=== PATIENT | male | born 1975 | race Caucasian/White ===

== ENCOUNTER 2017-03-29 23:08 | Emergency (ER) | payer SELFPAY ==
[~2017-03-29] VITALS: Ht 182.9 cm; Wt 81.6 kg
[~2017-03-29 23:08] MED LIST: CLIN300C3 PO; CYCL10TA9 PO; HYDR1TAB PO; LISI40TA PO; MRTZ30T1 PO; NAPR-243 PO; SULF1TAB7 PO
--- OUTSIDE RECORDS SUMMARY | 2017-03-29 23:13 | XMS REPORT ---
Author Author TANA VALLES Organization [facility] Address [address] [place] [address] Care Team Providers Care Business Division Chair Name Role Phone MAGGIE VALLESIE Unavailable PROBLEMS Type Condition ICD9-CM Code LFA34-EU Code Onset Dates Condition Status SNOMED Code Problem Polysubstance abuse F19.10 Active 212243735 Problem Essential hypertension, benign 401.1 Active 2889263 ALLERGIES No Known Allergies SOCIAL HISTORY Never Assessed PLAN OF CARE Activity Details Follow Up est care Reason: VITAL SIGNS Weight 178.6 lbs 2016-06-09 Temperature 98.1 degrees Fahrenheit 2016-06-09 Heart Rate 80 bpm 2016-06-09 Respiratory Rate 18 2016-06-09 Blood pressure systolic 132 mmHg 2016-06-09 Blood pressure diastolic 80 mmHg 2016-06-09 MEDICATIONS Medication Instructions Dosage Frequency Start Date End Date Duration Status Lisinopril 10 mg take 3 tablet by Oral route 1 time per day Apr, Active RESULTS Name Result Date Reference Range INR (IN HOUSE) 2016-06-09 INR 0.9 1.10 - 3.30 PREVIOUS INR none availalbe CURRENT COUMADIN DOSE NEW COUMADIN DOSE Lot # [id number] Exp date Feb 2017 URINE DRUG SCREEN (IN HOUSE) 2016-06-09 Lot # [id number] Exp date Control + COCAINE Negative AMPH Negative MTD Negative THC Positive OPIATE Negative BENZO Negative PCP Negative BAR Negative OXY Negative MAMP Negative TCA Negative BUP Negative MDMA Negative UA LONG DIP (IN HOUSE) 2016-06-09 Lot # [id number] Exp date 04/2017 Clarity clear Color yellow Odor no GLU Neg DAVID Neg KET Neg SG 1.010 BLO Neg pH 7.0 Protein Neg URO 0.2 NIT Neg FARIBA Neg Lot # Exp date CMP 2016-06-09 Glucose, Serum 91 65-99 BUN 10 6-24 Creatinine, Serum 0.96 0.76-1.27 eGFR If NonAfricn Am 97 >59 eGFR If Africn Am 112 >59 BUN/Creatinine Ratio 10 9-20 Sodium, Serum 139 134-144 Potassium, Serum 5.0 3.5-5.2 Chloride, Serum 98 96-106 Carbon Dioxide, Total 25 18-29 Calcium, Serum 9.5 8.7-10.2 Protein, Total, Serum 7.5 6.0-8.5 Albumin, Serum 4.5 3.5-5.5 Globulin, Total 3.0 1.5-4.5 A/G Ratio 1.5 1.1-2.5 Bilirubin, Total 0.4 0.0-1.2 Alkaline Phosphatase, S 55 39-117 AST (SGOT) 17 0-40 ALT (SGPT) 12 0-44 CBC w/ MANUAL DIFF 2016-06-09 WBC 9.6 3.4-10.8 RBC 5.23 4.14-5.80 Hemoglobin 16.4 12.6-17.7 Hematocrit 47.0 37.5-51.0 MCV 90 79-97 MCH 31.4 26.6-33.0 MCHC 34.9 31.5-35.7 RDW 13.4 12.3-15.4 Platelets 360 150-379 Neutrophils 57 Lymphs 34 Monocytes 5 Eos 4 Basos 0 Neutrophils Absolute 5.5 1.4-7.0 Lymphs (Absolute) 3.3 0.7-3.1 Monocytes(Absolute) 0.5 0.1-0.9 Eos (Absolute Value) 0.4 0.0-0.4 Baso(Absolute) 0.0 0.0-0.2 Differential Comment Note: RBC Comment Note: Normal Platelet Comment Note: Adequate HEP C AB W/REFLEX ([facility] ONLY) PROCEDURES Procedure Date Ordered Result Body Site URINALYSIS, AUTO, W/O SCOPE Jun 09, 2016 COMPREHEN METABOLIC PANEL Jun 09, 2016 VENIPUNCT, ROUTINE* Jun 09, 2016 HEP C AB W/REFLEX ([facility] ONLY) Jun 09, 2016 MANUAL CELL COUNT, EACH Jun 09, 2016 PROTHROMBIN TIME Jun 09, 2016 DRUG TEST PRSMV DIR OPT OBS Jun 09, 2016 IMMUNIZATIONS No Known Immunizations MEDICAL (GENERAL) HISTORY Type Description Date Medical History hepatitis C Surgical History appendix Hospitalization History blood poisoning
--- OUTSIDE RECORDS SUMMARY | 2017-03-29 23:13 | XMS REPORT ---
Author NATAN Carty [facility] Address [address] [place] [address] Care Team Providers Care Welcome Wagon Hostess Name Role Phone NATAN SALEH Unavailable PROBLEMS Type Condition ICD9-CM Code XWM50-XU Code Onset Dates Condition Status SNOMED Code Problem Polysubstance abuse F19.10 Active 716110065 Problem Essential hypertension, benign 401.1 Active 6132248 ALLERGIES No Information SOCIAL HISTORY Never Assessed PLAN OF CARE VITAL SIGNS MEDICATIONS Unknown Medications RESULTS No Results PROCEDURES No Known procedures IMMUNIZATIONS No Known Immunizations MEDICAL (GENERAL) HISTORY Type Description Date Medical History hepatitis C Surgical History appendix Hospitalization History blood poisoning
--- OUTSIDE RECORDS SUMMARY | 2017-03-29 23:14 | XMS REPORT | Continuity of Care Document ---
Author Author [facility] Address Unknown Phone Unavailable Allergies Medications Problems Date Dx Coded Attending Type Code Diagnosis Diagnosed By 05/06/2008 DEBRA HAUSER APRN 558.9 GASTROENTERITIS NONINFECTIOUS 05/06/2008 DEBRA HAUSER APRN 786.2 COUGH 05/09/2008 DEBRA HAUSER APRN 465.9 UPPER RESPIRATORY INFECTION 12/31/2008 DEBRA HAUSER APRN 724.5 BACKACHE UNSPECIFIED 05/08/2013 DEBRA HAUSER APRN 401.1 HYPERTENSION, BENIGN ESSENTIAL Procedures Code [place] [address] ROUTINE VENIPUNCTURE 05/08/2013 42833 CMP 05/08/2013 78545 TSH 05/08/2013 35033 CBC 05/08/2013 Results Encounters ACCT No. Visit Date/Time Discharge Status Pt. Type Provider Facility Loc./Unit Complaint [id number] 05/08/2013 15:57:00 05/08/2013 23: 59:59 CLS Outpatient DEBRA HAUSER APRN [id number] 02/17/2014 03:11:00 2013 03:38:00 DIS Emergency [id number] 12/17/2013 10:28:00 2013 15:35:00 DIS Emergency
[2017-03-29] MEDS ORDERED: FLUORESCEIN (FLUOR-I-STRIPS) 1 MG STRP OU ONE (23:30)
[2017-03-29] MEDS ORDERED: TETRACAINE 0.5% OPHTH SOLN 4 ML BTL (SINGLE DOSE ONLY) OU ONE (23:30)
--- NOTE | 2017-03-29 23:36 | ED EENT ---
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 HE THINKS HE LOST CONSCIOUSNESS HE WOKE UP ON THE GROUND WITH A HAMMER STILL IN HIS HANDS. WHEN HE WOKE HE HAD AN INTENSE PAIN IN HIS LEFT EYE. NO OTHER SYMPTOMS. HE CANNOT OPEN HIS EYE AND IS VERY SENSITIVE TO LIGHT. 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 The pain is not been relieved with 4 tablets of ibuprofen. It is very severe. He feels like spasming. His significant other briefly examined the eye and said there is no bleeding but decided to come here because his pain was not improving. No prior history of injury to the eye. He says when he got hit and knocked him out and after that his significant other says he was acting confused. Patient says he feels like his eyes were crossed in a spasm and he can't move them without significant amount of pain in his eye. He is having no pain in the back of his head or anywhere else. He rates it 8 out of 10 on arrival. He says he's had metal shavings in his eye before and this is way worse. Allergies and Home Medications Allergies Coded Allergies: No Known Drug Allergies (Unverified , 12/25/10) Home Medications Clindamycin Hcl 300 Mg Capsule, 1 EACH PO QID, #40 Prescribed by: KERMIT MCKEON on 12/17/13 1507 Mirtazapine 30 Mg Tab, 1 EACH PO HS, (Reported) Naproxen 500 Mg Tablet, 1 EACH PO TID PRN for PAIN, #20 FOR PAIN Prescribed by: KERMIT MCKEON on 12/17/13 1507 Trimethoprim/Sulfamethoxazole 1 Ea Tablet, 1 EA PO BID, #10 Prescribed by: LISSA GOODE on 02/17/14 0330 Review of Systems Constitutional: No chills, No fever Eyes: Blurred Vision, Pain, Photophobia Ears: Denies Dizziness, Denies Pain Nose: denies clots, denies congestion Mouth: denies clots, denies loose teeth Respiratory: No short of breath, No wheezing Past Ywussct-Gqnwcp-Nzslgm Hx Patient Social History Recent Foreign Travel: No Contact w/Someone Who Travel: No Recent Infectious Disease Expo: No Immunizations Up To Date Tetanus Booster (TDap): More than 5yrs Surgeries Surgeries: Appendectomy Reproductive System Hx Reproductive Disorders: No Sexually Transmitted Disease: No Physical Exam Vital Signs Vital Sign - Last 12Hours 03/29/17 23:16 Temp 98.0 Pulse 92 Resp 24 B/P (MAP) 145/104 (118) Pulse Ox 97 General Appearance: WD/WN, moderate distress Eyes: bilateral eye other (no swelling, ecchymosis, erythema in the preseptal soft tissues. He does not have much movement of his lateral rectus or inferior rectus muscles. Negative for proptosis.) Ears: bilateral ear auricle normal, bilateral ear canal normal Nose: normal inspection, No active bleeding Mouth/Throat: normal mouth inspection, pharynx normal Neck: non-tender, supple, normal inspection Cardiovascular: normal peripheral pulses, regular rate, rhythm Respiratory: chest non-tender, lungs clear, normal breath sounds Neurologic/Psychiatric: alert, normal mood/affect, oriented x 3 Skin: normal color, warm/dry Progress/Results/Core Measures Results/Orders My Orders Orders - BHARAT PATTERSON Tetracaine 0.5% Ophth [place] Sdv (Tetracai (03/29/17 23:30) Fluorescein Strips (Kpnnh-T-Ggwpmy) (03/29/17 23:30) Fentanyl Injection (Sublimaze Injection (03/30/17 00:00) Saline Lock/Iv-Start (03/29/17 23:48) Ct Orbit Wo (03/30/17 00:05) Ns Iv 1000 Ml (Sodium Chloride 0.9%) (03/30/17 00:59) Fentanyl Injection (Sublimaze Injection (03/30/17 01:00) Hydromorphone Injection (Dilaudid Inject (03/30/17 01:49) Hydromorphone Injection (Dilaudid Inject (03/30/17 02:00) Continuous Ekg Monitoring (03/30/17 01:55) Fluorescein Strips (Ypaxz-P-Gytgop) (03/30/17 02:32) Ketorolac Injection (Toradol Injection) (03/30/17 02:45) Levofloxacin 500 Mg/100 Ml Iv (Levaquin (03/30/17 03:15) Nicotine Patch (Nicoderm Patch) (03/30/17 03:45) Hydromorphone Injection (Dilaudid Inject (03/30/17 04:15) Medications Given in ED Current Medications Medications Dose Ordered Sig/Lorraine Route Start Time Stop Time Status Last Admin Dose Admin Fentanyl Citrate 50 mcg ONCE ONCE IVP 03/30/17 00:00 03/30/17 00:01 DC 03/30/17 00:25 50 MCG Fentanyl Citrate 100 mcg ONCE ONCE IVP 03/30/17 01:00 03/30/17 01:01 DC 03/30/17 01:02 100 MCG Fluorescein Sodium 1 mg ONCE ONCE OU 03/29/17 23:30 03/29/17 23:32 DC 03/29/17 23:47 1 MG Fluorescein Sodium 1 mg STK-MED ONCE .ROUTE 03/30/17 02:32 03/30/17 02:34 DC 03/30/17 02:33 1 MG Hydromorphone HCl 1 mg ONCE ONCE IVP 03/30/17 02:00 03/30/17 02:02 DC 03/30/17 01:52 1 MG Ketorolac Tromethamine 30 mg ONCE ONCE IVP 03/30/17 02:45 03/30/17 02:47 DC 03/30/17 02:53 30 MG Levofloxacin/ Dextrose 100 ml @ 100 mls/hr ONCE ONCE IV 03/30/17 03:15 03/30/17 04:14 03/30/17 03:20 100 MLS/HR Sodium Chloride 1,000 ml @ 0 mls/hr Q0M ONCE IV 03/30/17 00:59 03/30/17 01:01 DC 03/30/17 00:20 0 MLS/HR Tetracaine HCl 4 ml ONCE ONCE OU 03/29/17 23:30 03/29/17 23:32 DC 03/29/17 23:47 4 ML Vital Signs/I&O Vital Sign - Last 12Hours 03/29/17 23:16 Temp 98.0 Pulse 92 Resp 24 B/P (MAP) 145/104 (118) Pulse Ox 97 Blood Pressure Mean: 118 Progress Note #1: Time: 23:47 Progress Note Applied multiple drops of tetracaine with only very marginal improvement in his pain. He still rating at 8 out of 10. I'm worried about a deeper global injury versus a retrobulbar injury. I'm unable to examine his entire eye under fluorescein stain. We will get a CT scan of his head to focused on the eyes. Progress Note #2: Time: 02:04 Progress Note After 150 g of fentanyl and 1 mg of Dilaudid the patient says his pain is starting to get the edge knocked off. I do some more tetracaine eyedrops with no improvement in his pain. He is able to move his pupil down to the midline but not beyond that due to extreme pain. I have examined his eye with his eyelid closed as well as his eyelid opened. I'm not able to examine his iris or pupil as well as open the eyelid his eyes held and spasm in a superior manner. He cannot force his eye to look down and is experiencing a lot of pain every time he tries. We are concerned about a inferior rectus muscle laceration. At this speak with radiology a stat read and see if there is any evidence of a metallic foreign body. If there is not he will need an MRI of his eyes and I will discuss this with ophthalmology in [place] whether or not he could stay here with Pain Management and get the MRI in the morning or he needs to transit to [facility] for an MRI and Ophthalmology Consult. Stat read Dr. Pedro Toth: Discussed the imaging at length. There is no foreign body seen certainly no metallic object seen. Scan is sufficient and intact contrast and will not add unless you're looking for inflammatory pathology. He says it would be safe to do an MRI however he does not see anything. He says there may be some hemorrhage versus artifact seen in the anterior chamber but he sees the same shadow on the right eye as well so he favors it to be more likely artifact. To evaluate for an laceration of the inferior rectus muscle would need an MRI. Progress Note #3: Time: 02:35 Progress Note After administration of Dilaudid some time ago he is now able to bring his eye down so I can examine it and there is a very faint 1 mm linear corneal abrasion over the medial portion of the left iris. No foreign body is seen. There is minimal tearing. To command the patient is able to bring his eye down and externally. When his right eye looks down his left eye also looks down consensually. There is no disconjugate gaze. He is not going to hold still long enough for me to get a slit lamp examination. Progress Note #4: Time: 03:58 Progress Note Patient is now requesting to leave AMA as he does not want to go to cancel it if he cannot have a guaranteed ride home. He is afraid of being stranded [facility]. He does not have anyone that can take him up there and back reliably. We can definitely get him there by ambulance however because of the timing [facility] will not transport until 8 AM. I have offered him every explanation I can and he is adamant that he will not go if he cannot have a guaranteed ride home. If he does choose to go AMA I have offered him Plan B which would be to follow up at 8 AM with the local digester operator's at [facility] to have his eye examined for possibility of foreign body with dilated slit lamp examination. We have already made contact with the optometrists and they are aware of his existence and he would need merely to show up. If there is no evidence of foreign body and he would not need to go to [place]. If he does decide he will take ambulance transportation to [facility] then we will have to find another option other than [facility] to get him transported in a reasonable amount of time. Earlier transport attempts by air were denied due to weather for other patients today so it's unlikely will be able to fly him. I've given him until his antibiotics are done to discuss this with his significant other and chooses a path. He is decided he wants to leave go home get some rest and then follow up with the digester operator at 8. Diagnostic Imaging Diagonstic Imaging: CT Plain Films/CT/US/NM/MRI: head (face focusing on the ice) Comments Stat read impression: 1. Intact or wrist. No post septal edema or retrobulbar hematoma. 2. Paranasal sinus mucosal thickening. Reviewed: Reviewed by Me Consults Consults #1: Consults Notes Dr. black, digester operator discussed the case imaging and findings. She feels the same way that if he's having this much pain that relieved by topical tetracaine that she would recommend referral to ophthalmology and possible transfer care. His lack of mobility of extraocular muscles is what really concerns her. She suggests [place]. If he stays around here they would be happy to see him first thing in the morning to help follow-up. Dr. Jb Love, ophthalmology at [facility]: 0 145: Discussed case lab imaging and findings and he says it is histrionics versus actual foreign body of the eye or laceration of inferior rectus possible. He recommends that we try her best to rule out histrionics and then we discussed with the radiologist if there is or is not any metallic object in the eye. If there is not then he recommends an MRI within slices through the eye. He also wants his discussed with radiologist without scan was sufficient to that area and there is any other foreign body seen at all in the inferior orbit. He also wants us to discuss whether or not there is any evidence of laceration of an muscles on CT. If we have laceration of the extraocular muscles this will need to go somewhere to a team probably [facility]s [facility] where they actually do the surgery. He is willing to consult on the case with [facility] may be a better place for the patient to go as he does not do this type of surgery and does not have an eye trauma team. Final he recommends that they have both eyes open and have the patient look down the right eye looks down but the left eye remains up then you have your diagnosis and he needs to go directly to an eye trauma surgeon. However if the left eye looks down in the right eye follows it then this cast doubt on there being any injury to the inferior rectus. We discussed the conversation with the radiologist. Consults #2: Consults Notes [facility]: 0220; spoke with Andrés, triage nurse. He is given a run this through the trauma physician educational adviser to see if they want to go straight to ophthalmology or through them first. 0255: Dr Prado: Discussed case imaging and findings of Exam. VA is 20/200 in left eye. He would like to see the pt in ER to ER transfer. He is concerned only about a foreign body to the eye. [place] does not have a retina specialist. He is not certain the patient would need to be admitted unless there is evidence of foreign body on examination. He would like us to put a eye shield and give a dose of Levaquin. Departure Impression Impression: Primary Impression: Corneal abrasion Qualified Codes: S05.02XA - Injury of conjunctiva and corneal abrasion without foreign body, left eye, initial encounter Disposition: Condition: Stable Departure-Patient Inst. Decision time for Depature: 04:11 Referrals: NO,LOCAL PHYSICIAN (PCP/Family) Primary Care Physician Add. Discharge Instructions: My advice would be the to go to the ER in [facility] and be examined by ophthalmology. If you're not going to do that and the secondary option would be to go to see the digester operator at [facility] at 8 AM for dilated slit lamp examination looking for retained foreign body of the eye left side. Please call their clinic at [phone] at [phone]. I spoke with Dr. Black this morning. If you're having pain you may take 1-2 tablets of the oxycodone every 6 hours as needed. I'll send a prescription for you to fill the pharmacy for pain medicine as well. Be aware that failing to follow-up with your eye in a timely, appropriate manner may cost you the vision in that eye. All discharge instructions reviewed with patient and/or family. Voiced understanding. Scripts Oxycodone HCl/Acetaminophen (Oxycodone-Acetaminophen 10-325) 1 Each Tablet 1-2 EACH PO Q6H Y for BREAKTHROUGH PAIN, #30 TAB 0 Refills Prov: BHARAT PATTERSON 03/30/17 Work/School Note: Work Release Form Date Seen in the Emergency Department: Mar 30, 2017 Return to Work: Apr 01, 2017 Restrictions: No Restrictions Copy Copies To 1: NATAN SALEH DO Copies To 2: YING COPE OD BHARAT PATTERSON Mar 29, 2017 23:36
[2017-03-30] MEDS ORDERED: NS IV 1000 ML 1,000 ML IV ONE (00:59)
[2017-03-30] MEDS ORDERED: fentaNYL INJECTION 100 MCG/2 ML AMP IVP ONE ×2 (01:00)
[2017-03-30] MEDS ORDERED: HYDROmorphone (DILAUDID) 2 MG/ML VIAL ONE (01:49)
[2017-03-30] MEDS ORDERED: HYDROmorphone (DILAUDID) 2 MG/ML VIAL IVP ONE ×2 (02:00→04:15)
[2017-03-30] MEDS ORDERED: FLUORESCEIN (FLUOR-I-STRIPS) 1 MG STRP ONE (02:32)
[2017-03-30] MEDS ORDERED: KETOROLAC 30 MG/ML VIAL IVP ONE (02:45)
[2017-03-30] MEDS ORDERED: LEVOFLOXACIN 500 MG/100 ML IV 100 ML IV ONE (03:15)
[2017-03-30] MEDS ORDERED: NICOTINE 21 MG (NICODERM) PATCH TD ONE (03:45)
[2017-03-30] MEDS ORDERED: RX-OXYCODONE/APAP 5-325 MG #4 TAB PK PO PRN (04:15)
[2017-03-30] MEDS ORDERED: OXYC-465 PO (04:15)
[2017-03-30 04:29] VITALS: BP 145/104
--- NOTE | 2017-03-30 07:20 | Diagnostic Imaging Report ---
PROCEDURE: CT orbit without. TECHNIQUE: Multiple contiguous axial images were obtained through the facial bones without the use of intravenous contrast. INDICATION: Patient saw flashes of white light while working. Syncope. Woke up on the ground. Left eye pain. Photophobia. FINDINGS: Orbital contents are symmetrical and appear normal. No evidence of post-septal edema or hematoma. The optic nerves and extraocular muscles are normal. The globes are symmetrical and normal. There is noted diffuse edema throughout the ethmoid sinuses and extending into the frontal sinuses. No fracture demonstrated. IMPRESSION: 1. Finding consistent with inflammatory paranasal sinus disease. 2. Orbits appear normal. These findings are concordant with the preliminary report. Dictated by: Dictated on workstation # [id number]
== END 2017-03-30 04:30 | disposition left against medical advice (07) ==
LOC: EDUNIT# 23:08 → ER 23:10
DX: S05.02XA Injury of conjunctiva and corneal abrasion without foreign body, left eye, initial encounter (principal); W20.8XXA Other cause of strike by thrown, projected or falling object, initial encounter
CPT/HCPCS: 70480

== ENCOUNTER → 2020-01-08 | Outpatient (CLI) | payer SELFPAY ==
[~2020-01-08] MED LIST changes: +OXYC-556 PO
--- NOTE | 2020-01-08 10:37 | Diagnostic Imaging Report ---
CLINICAL INDICATION: Patient with low back pain. 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 EXAM: MRI of the lumbar spine performed without IV contrast. Sagittal T2, sagittal T1, sagittal stir, axial T1, and axial T2. COMPARISON: None. FINDINGS: There is no acute lumbar spine fracture or dislocation. There is chronic small Schmorl's nodes involving the inferior endplate of the L2 vertebra and upper and lower endplates of the L3, L4, and L5 vertebra. There is no marrow edema seen. There is a small intraosseous hemangioma within the L5 vertebra. The visualized portions of the distal thoracic spinal cord, conus medullaris, and cauda equina nerve roots are unremarkable. The conus medullaris tip is seen at the L1-L2 intervertebral level. There is no significant paraspinal soft tissue abnormality. L1-L2: Unremarkable. L2-L3: There is mild bilateral facet arthropathy. There is minimal disc bulging anteriorly. There is mild right neural foramen narrowing and cyfw-ti-honbgrvg left neural foramen narrowing which may be due to facet arthropathy. There is no significant central canal narrowing. L3-L4: There is mild bilateral facet arthropathy. There is no significant central canal narrowing. There is mild bilateral neural foramen narrowing (left side more than the right). There is no significant disc bulge. L4-L5: There is subtle mild diffuse disc bulge. There is a small annular tear involving the anterior aspect of disc. There is mild bilateral facet arthropathy. There is no significant central canal narrowing. There is qqgv-ur-kywfumuu left neural foramen narrowing and no significant right neural foramen narrowing. L5-S1: There is a small broad posterior right paracentral disc protrusion/herniation. There is an annular tear involving the right paracentral aspect of the disc. There is slight low T2 degenerative disc signal changes. There is mild bilateral facet arthropathy. There is no significant central canal narrowing. There is whbp-mq-cbhlizgf bilateral neural foramen narrowing. IMPRESSION: 1: There is no acute lumbar spine fracture or dislocation. 2: There is rmaz-ky-fzkrmikr lumbar spine degenerative disease which is described in detail above. 3: There is a small L5-S1 posterior right paracentral disc protrusion/herniation with annular tear. There is no significant central canal narrowing. Dictated by: Dictated on workstation # [id number]
== END ==
LOC: RAD 08:11
PROVIDERS: ATTEND Nurse Practitioner Community Health
DX: M51.17 Intervertebral disc disorders with radiculopathy, lumbosacral region (principal); M47.817 Spondylosis without myelopathy or radiculopathy, lumbosacral region; M48.07 Spinal stenosis, lumbosacral region; M51.46 Schmorl's nodes, lumbar region; D18.09 Hemangioma of other sites
CPT/HCPCS: 72148